=== PATIENT | female | born 1940 | race Caucasian/White ===

== ENCOUNTER 2017-08-11 09:10 | Day surgery (SDC) | payer OTHER, MEDICAID ==
[2017-08-08 11:08] VITALS: BP 160/88
[2017-08-08 11:37] LABS: BASOPHILS # (AUTO) 0.07 x10^3/uL (0-0.1); BASOPHILS % (AUTO) 1 % (0-1); EOSINOPHILS # (AUTO) 0.28 x10^3/uL (0-0.4); EOSINOPHILS % (AUTO) 4 % (1-7); LYMPHOCYTES # (AUTO) 1.91 x10^3/uL (1-3.4); LYMPHOCYTES % (AUTO) 28 % (22-44); MD NO; MEAN CORPUSCULAR HEMOGLOBIN 28.2 pg (27.0-34.8); MEAN CORPUSCULAR HGB CONC 32.9 g/dL (32.4-35.8); MEAN CORPUSCULAR VOLUME 85.8 fL (80-100); MEAN PLATELET VOLUME 7.9 fL (7.4-10.4); MONOCYTES # (AUTO) 0.45 x10^3/uL (0.2-0.8); MONOCYTES % (AUTO) 7 % (2-9); NEUTROPHILS % (AUTO) 60 % (42-75); PLATELET COUNT 321 x10^3/uL (130-400); RED BLOOD COUNT 5.06 x10^6/uL (3.82-5.3); RED CELL DISTRIBUTION WIDTH 14.5 % (9.6-15.2)
[2017-08-08 11:45] LABS: INTERNATIONAL NORMALIZED RATIO 0.93 (0.93-1.1); PROTHROMBIN TIME 9.7 Seconds (9.6-11.5)
[2017-08-08 14:03] LABS: ALANINE AMINOTRANSFERASE 32 U/L (12-78); ALBUMIN 4.2 g/dL (3.4-5.0); ANION GAP 9 mmol/L (5-15); CALCIUM 9.7 mg/dL (8.5-10.1); CHLORIDE 107 mmol/L (98-107); CREATININE 0.74 mg/dL (0.55-1.02)
[2017-08-08 14:22] LABS: ALKALINE PHOSPHATASE 105 U/L (45-117); BILIRUBIN,TOTAL 0.4 mg/dL (0.2-1.0); TOTAL PROTEIN 8.3 g/dL (6.4-8.2)
[~2017-08-11] VITALS: Ht 144.8 cm; Wt 56.8 kg
[~2017-08-11 09:10] MED LIST: AMLO10TA2 PO; ASPI-515 PO; ASPI-650 PO; ATOR10TA9 PO; BUPIVACAINE/PF 0.5% ONE; CHOL20002 PO; EPINEPHRINE 1 MG/ML, 1ML ONE; HEPARIN 1,000 UNITS/ML, 10ML ONE; HYDR-3237 PO; LABE200T3 PO; LOSA100T6 PO; MELO15TA24 PO; METF750T2 PO; OMEG300C PO; PROTAMINE SULFATE 10 MG/ML, 5ML ONE; SIMV10TA3 PO
[2017-08-11] MEDS ORDERED: morphine SULFATE 10 MG/ML, 1ML IV PRN (09:30)
[2017-08-11] MEDS ORDERED: OXYcodone 5 MG/5 ML ORAL.SOL UDC PO PRN (09:30)
[2017-08-11] MEDS ORDERED: HYDROcodone/APAP 7.5-325MG/15ML UDC PO PRN (09:30)
[2017-08-11] MEDS ORDERED: FENTANYL PF 100 MCG/2ML IV PRN (09:30)
[2017-08-11] MEDS ORDERED: ONDANSETRON 2MG/ML, 2ML IVPush PRN (09:30)
[2017-08-11] MEDS ORDERED: MEPERIDINE/PF 25MG/0.5ML IVPush PRN (09:30)
[2017-08-11] MEDS ORDERED: LACTATED RINGERS 1,000 ML IV SCH (09:38)
[2017-08-11] MEDS ORDERED: PROPOFOL 10 MG/ML, 20ML ONE (10:37)
[2017-08-11] MEDS ORDERED: CEFAZOLIN 1,000 MG ONE (10:37)
[2017-08-11] MEDS ORDERED: LIDOCAINE-MPF 2% ,5ML ONE (10:37)
[2017-08-11] MEDS ORDERED: ONDANSETRON 2MG/ML, 2ML ONE (11:02)
[2017-08-11] MEDS ORDERED: DEXAMETHASONE 4 MG/ML, 1ML ONE ×2 (11:02)
[2017-08-11] MEDS ORDERED: FENTANYL PF 100 MCG/2ML ONE (11:03)
[2017-08-11] MEDS ORDERED: OXYcodone 5 MG/5 ML ORAL.SOL UDC ONE (11:51)
== END 2017-08-11 16:15 | disposition home or self-care (01) ==
LOC: OUT 09:10
PROVIDERS: ATTEND Surgery
DX: Z45.2 Encounter for adjustment and management of vascular access device (principal); E11.9 Type 2 diabetes mellitus without complications; E78.00 Pure hypercholesterolemia, unspecified; Z87.39 Personal history of other diseases of the musculoskeletal system and connective tissue; Z86.73 Personal history of transient ischemic attack (TIA), and cerebral infarction without residual deficits; I10 Essential (primary) hypertension
CPT/HCPCS: 36415; 36561; 71045; 80053; 82378; 82962; 85025; 85610; 93005; C1788; J0171; J0690; J1100; J1644; J2405; J2704; J3010; J3490; J7120; J2720

== ENCOUNTER 2018-01-06 06:09 | Observation (INO) | payer OTHER, MEDICAID ==
[2018-01-05 11:57] LABS: BASOPHILS # (AUTO) 0.05 x10^3/uL (0-0.1); BASOPHILS % (AUTO) 1 % (0-1); EOSINOPHILS # (AUTO) 0.12 x10^3/uL (0-0.4); EOSINOPHILS % (AUTO) 2 % (1-7); LYMPHOCYTES # (AUTO) 1.73 x10^3/uL (1-3.4); LYMPHOCYTES % (AUTO) 30 % (22-44); MD NO; MEAN CORPUSCULAR HEMOGLOBIN 26.9 pg (27.0-34.8); MEAN CORPUSCULAR HGB CONC 32.1 g/dL (32.4-35.8); MEAN CORPUSCULAR VOLUME 83.6 fL (80-100); MEAN PLATELET VOLUME 7.8 fL (7.4-10.4); MONOCYTES # (AUTO) 0.33 x10^3/uL (0.2-0.8); MONOCYTES % (AUTO) 6 % (2-9); NEUTROPHILS # (AUTO) 3.62 x10^3/uL (1.8-6.8); NEUTROPHILS % (AUTO) 62 % (42-75); PLATELET COUNT 317 x10^3/uL (130-400); RED BLOOD COUNT 4.76 x10^6/uL (3.82-5.3); RED CELL DISTRIBUTION WIDTH 16.1 % (9.6-15.2)
[2018-01-05 12:10] LABS: INTERNATIONAL NORMALIZED RATIO 0.97 (0.93-1.1)
[2018-01-05 12:15] LABS: ALANINE AMINOTRANSFERASE 26 U/L (12-78); ANION GAP 8 mmol/L (5-15); CHLORIDE 109 mmol/L (98-107); CREATININE 0.84 mg/dL (0.55-1.02)
[2018-01-05 12:21] LABS: ALKALINE PHOSPHATASE 97 U/L (45-117); BILIRUBIN,TOTAL 0.6 mg/dL (0.2-1.0); TOTAL PROTEIN 7.7 g/dL (6.4-8.2)
[~2018-01-06] VITALS: Ht 147.3 cm; Wt 55.7 kg
[~2018-01-06 06:09] MED LIST changes: +ASPI-621 PO; -BUPIVACAINE/PF 0.5% ONE; -EPINEPHRINE 1 MG/ML, 1ML ONE; -HEPARIN 1,000 UNITS/ML, 10ML ONE; +ONDA4TAB7 PO; +POTA10TA31 PO; -PROTAMINE SULFATE 10 MG/ML, 5ML ONE
[2018-01-06] MEDS ORDERED: LACTATED RINGERS 1,000 ML IV SCH (06:44)
[2018-01-06] MEDS ORDERED: ISOSULFAN BLUE 10 MG/ML, 5ML IV ONE (07:01)
[2018-01-06] MEDS ORDERED: BUPIVACAINE 0.25% ONE (07:01)
[2018-01-06] MEDS ORDERED: EPINEPHRINE 1 MG/ML, 1ML ONE (07:02)
[2018-01-06] MEDS ORDERED: FENTANYL PF 250 MCG/5ML ONE ×2 (07:16→08:14)
[2018-01-06] MEDS ORDERED: MIDAZOLAM 1 MG/ML, 2ML ONE (07:16)
[2018-01-06] MEDS ORDERED: PROPOFOL 10 MG/ML, 20ML ONE (07:25)
[2018-01-06] MEDS ORDERED: ONDANSETRON 2MG/ML, 2ML ONE ×2 (07:25→11:03)
[2018-01-06] MEDS ORDERED: CEFAZOLIN 1,000 MG ONE ×2 (07:25)
[2018-01-06] MEDS ORDERED: ROCURONIUM 10MG/ML,5ML ONE (07:25)
[2018-01-06] MEDS ORDERED: DEXAMETHASONE 4 MG/ML, 1ML ONE (07:25)
[2018-01-06] MEDS ORDERED: BUPIVACAINE/PF 0.25% INFIL ONE (07:55)
[2018-01-06] MEDS ORDERED: EPINEPHRINE 1 MG/ML, 1ML INFIL ONE (07:56)
[2018-01-06] MEDS ORDERED: ACETAMINOPHEN 325 MG TABLET PO PRN (09:00)
[2018-01-06] MEDS ORDERED: FENTANYL PF 100 MCG/2ML IV PRN (09:00)
[2018-01-06] MEDS ORDERED: HYDROmorphone 1 MG/ML, 1ML IV PRN (09:00)
[2018-01-06] MEDS ORDERED: ONDANSETRON ODT 8 MG PO PRN (09:00)
[2018-01-06] MEDS ORDERED: MEPERIDINE/PF 25MG/0.5ML IVPush PRN (09:00)
[2018-01-06] MEDS ORDERED: OXYcodone 5 MG/5 ML ORAL.SOL UDC PO PRN (09:00)
[2018-01-06] MEDS ORDERED: OXYcodone 5 MG/5 ML ORAL.SOL UDC ONE (09:47)
[2018-01-06] MEDS ORDERED: FENTANYL PF 100 MCG/2ML ONE (09:47)
[2018-01-06] MEDS ORDERED: LABETALOL 5MG/ML, 20ML ONE (09:47)
[2018-01-06] MEDS ORDERED: LABETALOL 5MG/ML, 20ML IV PRN (10:00)
[2018-01-06] MEDS ORDERED: ONDANSETRON ODT 8 MG ONE (12:00)
[2018-01-06] MEDS ORDERED: DEXTROSE 50%, 50ML SYRINGE IVPush PRN (12:30)
[2018-01-06] MEDS ORDERED: DEXTROSE 4 GM TAB.CHEW PO PRN (12:30)
[2018-01-06] MEDS ORDERED: MORPHINE SULFATE 4 MG/ML, 1ML IVPush PRN (12:30)
[2018-01-06] MEDS ORDERED: hydrALAzine 20 MG/ML, 1ML IVPush PRN (12:30)
[2018-01-06] MEDS ORDERED: ONDANSETRON 2MG/ML, 2ML IVPush ONE (12:30)
[2018-01-06] MEDS ORDERED: GLUCAGON 1 MG IM PRN (12:30)
[2018-01-06] MEDS ORDERED: ONDANSETRON ODT 4 MG PO PRN (12:30)
[2018-01-06] MEDS ORDERED: OXYcodone IR 5MG TABLET PO PRN (12:30)
[2018-01-06] MEDS ORDERED: ONDANSETRON 2MG/ML, 2ML IVPush PRN ×2 (12:30→18:30)
[2018-01-06 12:47] LABS: ANION GAP 8 mmol/L (5-15); CALCIUM 8.4 mg/dL (8.5-10.1); CHLORIDE 105 mmol/L (98-107); CREATININE 0.94 mg/dL (0.55-1.02)
[2018-01-06 12:50] LABS: TROPONIN I < 0.015 ng/mL (0.000-0.045)
[2018-01-06 13:07] LABS: THYROID STIMULATING HORMONE 1.13 mIU/L (0.358-3.740)
[2018-01-06] MEDS ORDERED: MAGNESIUM SULFATE 2 GM in SODIUM CHLORIDE 0.9% 50 ML IV ONE (13:30)
[2018-01-06] MEDS ORDERED: POTASSIUM CHLORIDE 40 MEQ in SODIUM CHLORIDE 0.9% 500 ML IV ONE (13:30)
[2018-01-06 14:31] VITALS: BP 147/78
[2018-01-06] MEDS: CEFAZOLIN PMX 1GM/50ML 50 ML IV SCH (18:30)
[2018-01-06] MEDS ORDERED: morphine SULFATE 10 MG/ML, 1ML IVPush PRN (18:30)
[2018-01-06 18:33] LABS: TROPONIN I < 0.015 ng/mL (0.000-0.045)
[2018-01-06] MEDS ORDERED: HYDROcodone/APAP 5/325 TABLET PO PRN ×2 (19:00→21:10)
[2018-01-06 19:43] VITALS: BP 144/79
[2018-01-06] MEDS: SODIUM CHLORIDE FLUSH 10ML SYR IVF SCH (21:00)
[2018-01-06] MEDS ORDERED: SIMVASTATIN 10 MG TABLET PO SCH (21:00)
[2018-01-06] MEDS ORDERED: SIMVASTATIN 20 MG TABLET ONE (21:18)
[2018-01-06] MEDS: metFORMIN 500 MG TABLET PO SCH (21:24)
[2018-01-07] MEDS: D5%-0.45NACL+KCL 20MEQ 1,000 ML IV SCH ×2 (00:05→10:18)
[2018-01-07] MEDS: CEFAZOLIN PMX 1GM/50ML 50 ML IV SCH (02:09)
[2018-01-07 02:37] VITALS: BP 124/68
[2018-01-07 07:03] VITALS: BP 111/66
[2018-01-07] MEDS: metFORMIN 500 MG TABLET PO SCH (08:42)
[2018-01-07] MEDS: SODIUM CHLORIDE FLUSH 10ML SYR IVF SCH (08:43)
[2018-01-07] MEDS ORDERED: AMLODIPINE 5 MG TABLET PO SCH (09:00)
[2018-01-07] MEDS ORDERED: LOSARTAN 50MG TABLET PO SCH (09:00)
[2018-01-07] MEDS ORDERED: ASPIRIN 81 MG TABLET EC PO SCH (09:00)
[2018-01-07] MEDS ORDERED: POTASSIUM CHLORIDE 10 MEQ TABLET.ER PO SCH (09:00)
[2018-01-07 14:00] VITALS: BP 123/66
[2018-01-07] MEDS ORDERED: HYDR-3240 PO (15:25)
[2018-01-07] MEDS ORDERED: HEPARIN 5,000 UNITS/ML, 1ML ONE (18:07)
[2018-01-07] MEDS ORDERED: HEPARIN 5,000 UNITS/ML, 1ML SQ ONE (18:30)
== END 2018-01-07 18:48 | disposition home or self-care (01) ==
LOC: OUT 06:09 → ORIP 12:05 → 5SO 13:39
PROVIDERS: ADMIT Surgery; ATTEND Surgery
DX: C50.911 Malignant neoplasm of unspecified site of right female breast (principal); E11.9 Type 2 diabetes mellitus without complications; R00.1 Bradycardia, unspecified; E78.5 Hyperlipidemia, unspecified; I10 Essential (primary) hypertension; I44.1 Atrioventricular block, second degree; Z15.01 Genetic susceptibility to malignant neoplasm of breast; Z85.3 Personal history of malignant neoplasm of breast; Z86.73 Personal history of transient ischemic attack (TIA), and cerebral infarction without residual deficits; Z87.891 Personal history of nicotine dependence
CPT/HCPCS: 19307; 36415; 80048; 80053; 82962; 83735; 84100; 84443; 84484; 85025; 85610; 88305; 88309; 93005; 96365; 96366; 96367; 96372; 96375; C1729; G0378; J0171; J0690; J1100; J1644; J2250; J2405; J2704; J3010; J3480; J3490; J7040; J7120; Q0162

== ENCOUNTER 2019-12-18 09:09 | Day surgery (SDC) | payer MEDICARE ==
[~2019-12-18] VITALS: Ht 147.3 cm; Wt 55.3 kg
[~2019-12-18 09:09] MED LIST changes: -AMLO10TA2 PO; +AMLO10TA8 PO; -ASPI-621 PO; +ASPI81TA45 PO; -CHOL20002 PO; +CHOL200052 PO; +HYDR-3240 PO; -LABE200T3 PO; +LABE200T6 PO; +LOSA100T14 PO; -LOSA100T6 PO; -METF750T2 PO; +METF750T42 PO; +SIMV10TA18 PO; -SIMV10TA3 PO
[2019-12-18] MEDS ORDERED: SODIUM CHLORIDE 0.9% 1,000 ML IV SCH (09:35)
[2019-12-18] MEDS ORDERED: MOTRIN PO (09:40)
[2019-12-18] MEDS ORDERED: FISH OIL PO (09:40)
[2019-12-18] MEDS ORDERED: VALS80TA3 PO (09:40)
[2019-12-18 09:42] VITALS: BP 150/83
[2019-12-18] MEDS ORDERED: PLEASE ENTER HEIGHT AND WEIGHT MC SCH (09:42)
[2019-12-18] MEDS ORDERED: CEFAZOLIN PMX 1GM/50ML 50 ML IV ONE (10:00)
[2019-12-18] MEDS ORDERED: LIDOCAINE 1%, 20ML ONE (10:24)
[2019-12-18] MEDS ORDERED: LIDOCAINE 1%, 10ML ONE ×2 (10:24→11:39)
[2019-12-18] MEDS ORDERED: NALOXONE 1 MG/ML, 2ML ONE (11:01)
[2019-12-18] MEDS ORDERED: FENTANYL PF 100 MCG/2ML ONE (11:01)
[2019-12-18] MEDS ORDERED: FLUMAZENIL 0.1 MG/1 ML, 5ML ONE (11:01)
[2019-12-18] MEDS ORDERED: MIDAZOLAM 1 MG/ML, 5ML ONE ×2 (11:01)
== END 2019-12-18 14:45 | disposition home or self-care (01) ==
LOC: OUT 09:09
PROVIDERS: ATTEND Internal Medicine Hematology & Oncology
DX: C50.411 Malignant neoplasm of upper-outer quadrant of right female breast (principal); I10 Essential (primary) hypertension; E11.9 Type 2 diabetes mellitus without complications; I69.351 Hemiplegia and hemiparesis following cerebral infarction affecting right dominant side; Z79.82 Long term (current) use of aspirin; Z79.84 Long term (current) use of oral hypoglycemic drugs; Z79.899 Other long term (current) drug therapy; Z87.891 Personal history of nicotine dependence; Z90.11 Acquired absence of right breast and nipple; Z98.890 Other specified postprocedural states; Z82.49 Family history of ischemic heart disease and other diseases of the circulatory system; Z83.1 Family history of other infectious and parasitic diseases
CPT/HCPCS: 36561; 76937; 77001; 99156; 99157; C1769; C1788; C1894; J0690; J1642; J2250; J3010; J7030; J2310

== ENCOUNTER → 2020-02-06 | Outpatient (CLI) | payer MEDICARE ==
[~2020-02-06] MED LIST changes: +ALEN70TA6 PO; +FISH OIL PO; +MOTRIN PO; +MULT-257 PO; +OMEG1CAP6 PO; +POTA20TA89 PO; +VALS80TA3 PO
== END | disposition home or self-care (01) ==
LOC: ROC 08:28
PROVIDERS: ATTEND Radiology Radiation Oncology
DX: C79.81 Secondary malignant neoplasm of breast (principal); C79.31 Secondary malignant neoplasm of brain
CPT/HCPCS: 99214; G0463

== ENCOUNTER 2020-02-13 09:59 | Outpatient (CLI) | payer MEDICARE ==
[2020-02-13] MEDS ORDERED: GADOBUTROL 10 MMOL/10 ML VIAL ONE (10:30)
== END 2020-02-13 23:59 | disposition home or self-care (01) ==
LOC: CFH 09:59 → EDSTATUS 10:30 → CFH 23:59
PROVIDERS: ATTEND Radiology Radiation Oncology
DX: C79.31 Secondary malignant neoplasm of brain (principal)
CPT/HCPCS: 70553; A9585

== ENCOUNTER 2020-05-16 07:08 | Outpatient (CLI) | payer MEDICARE | END 2020-05-16 23:59 | disposition home or self-care (01) | LOC: ROC 07:08 | PROVIDERS: ATTEND Radiology Radiation Oncology | DX: C79.31 Secondary malignant neoplasm of brain (principal); C50.112 Malignant neoplasm of central portion of left female breast; I10 Essential (primary) hypertension; E11.9 Type 2 diabetes mellitus without complications; G89.29 Other chronic pain; Z79.84 Long term (current) use of oral hypoglycemic drugs; Z79.899 Other long term (current) drug therapy; Z87.891 Personal history of nicotine dependence; Z79.82 Long term (current) use of aspirin | CPT/HCPCS: 99212; G0463 ==

== ENCOUNTER → 2020-05-28 | Outpatient (CLI) | payer MEDICARE ==
[~2020-05-28] MED LIST changes: -ALEN70TA6 PO; +ALEN70TA66 PO; +AMLO-211 PO; -AMLO10TA8 PO; +OMNIPAQUE 350 MG/ML, 100ML BOTTLE ONE
== END | disposition home or self-care (01) ==
LOC: CFH 14:50
PROVIDERS: ATTEND Radiology Radiation Oncology
DX: C50.112 Malignant neoplasm of central portion of left female breast (principal); J90 Pleural effusion, not elsewhere classified; E04.9 Nontoxic goiter, unspecified; J98.11 Atelectasis; R59.1 Generalized enlarged lymph nodes
CPT/HCPCS: 71275; Q9967

== ENCOUNTER 2020-09-19 12:11 | Outpatient (CLI) | payer MEDICARE ==
[~2020-09-19 12:11] MED LIST changes: -ALEN70TA66 PO; +ALEN70TA77 PO; -ASPI-515 PO; -ASPI-650 PO; +ASPI-963 PO; +ASPI325T20 PO; +GABA-826 PO; +HYDR-1067 PO; -HYDR-3240 PO; -OMNIPAQUE 350 MG/ML, 100ML BOTTLE ONE
== END 2020-09-19 23:59 | disposition home or self-care (01) ==
LOC: ROC 12:11
PROVIDERS: ATTEND Radiology Radiation Oncology
DX: Z08 Encounter for follow-up examination after completed treatment for malignant neoplasm (principal); Z85.3 Personal history of malignant neoplasm of breast; R19.7 Diarrhea, unspecified; E11.9 Type 2 diabetes mellitus without complications; I10 Essential (primary) hypertension; Z79.82 Long term (current) use of aspirin; Z17.1 Estrogen receptor negative status [ER-]; Z79.84 Long term (current) use of oral hypoglycemic drugs; G89.3 Neoplasm related pain (acute) (chronic); Z87.891 Personal history of nicotine dependence
CPT/HCPCS: 99213; G0463